=== PATIENT | male | born 1935 | race Caucasian/White ===

== ENCOUNTER 2022-11-29 12:21 | Outpatient (CLI) | payer MEDICARE, SELFPAY ==
--- NOTE | ~2022-11-29 | PE_ITS ---
EXAMINATION: PET_PETPSMAST_PT DATE: 11/29/2022 14:31 INDICATION: Prostate cancer. TECHNIQUE: 8.710 mCi of piflufolastat F-18 was administered intravenously. Low dose computed tomograp hy (CT) images were acquired from the base of the brain to the proximal thighs for attenuation correc tion and anatomic localization. Automated exposure control was employed. Dose-length product (DLP) wa s 689 mGy-cm. Positron emission tomography (PET) images were acquired in the same distribution. COMPARISON: None FINDINGS: Head/neck: There are no pathologically enlarged lymph nodes. Chest: There is mild scarring at the lung apices. There is mild atelectasis bilaterally. Calcified hi lar and mediastinal lymph nodes are consistent with old adenomatous disease. No pleural effusion. The heart size is normal. There are coronary artery calcifications. No pericardial effusion. There is mi ld bilateral gynecomastia. There is a healing fracture of anterior left fifth rib with maximum SUV of 3.5, likely benign. Abdomen/pelvis/proximal thighs: The liver, gallbladder, spleen, pancreas, adrenal glands, and left ki dney are normal. There is a 3 mm stone in right kidney. There is mild aortic atherosclerosis. There i s diverticulosis of the colon without evidence of diverticulitis. The prostate is moderately enlarged . There is increased activity in the prostate with maximum SUV of 6.9. There is diffuse bladder wall thickening, likely secondary to chronic outlet obstruction. There are no pathologically enlarged lymp h nodes. There is no free intraperitoneal fluid. IMPRESSION: 1. Moderately enlarged prostate with increased activity, consistent with primary malignancy. No speci fic evidence of metastatic disease. Reviewed, dictated and finalized at location A. IMPRESSION: 1. Moderately enlarged prostate with increased activity, consistent with primar y malignancy. No specific evidence of metastatic disease.
== END 2022-11-29 12:22 | disposition home or self-care (01) ==
LOC: ANHIMG 12:30
PROVIDERS: PCP Family Medicine; Visit Provider Nurse Practitioner Adult Health
DX: C61 Malignant neoplasm of prostate (principal)
CPT/HCPCS: 78815; A9595